=== PATIENT | male | born 1960 | race Caucasian/White ===

== ENCOUNTER 2019-09-03 16:53 | Emergency (ER) | payer BC ==
[2019-09-03 17:05] VITALS: BP 142/94; PULSE 96; TEMP 98.6; BMI 24.7
--- NOTE | 2019-09-03 17:05 | PDOC ---
Rapid Medical Evaluation Time Seen by Provider: 09/03/19 17:02 Medical Evaluation: Allergies Allergy/AdvReac Type Severity Reaction Status Date / Time No Known Allergies Allergy Verified 09/03/19 17:02 09/03/19 17:03 This patient had rapid medical evaluation in triage cc:" I feel like a fishbone is in my throat" HPI: Patient reports eating fish today and since then feels as if a fishbone is stuck in his throat. PE: NAD no stridors, clear lungs heart s1s2 Orders: xray of neck This patient will proceed to ed for further evaluation. Discharge Disposition - Diagnosis Fishbone in throat - Referrals - Patient Instructions - Post Discharge Activity
--- NOTE | 2019-09-03 17:13 | PDOC ---
History of Present Illness - General Chief Complaint: Foreign Body (FB) Stated Complaint: FISH BONE STUCK IN THROAT Time Seen by Provider: 09/03/19 17:02 History Source: Patient Exam Limitations: No Limitations Past History - Past Medical History Allergies/Adverse Reactions: Allergies Allergy/AdvReac Type Severity Reaction Status Date / Time No Known Allergies Allergy Verified 09/03/19 17:02 - Psycho Social/Smoking Cessation Hx Smoking History: Never smoked Hx Alcohol Use: No Drug/Substance Use Hx: No Review of Systems - Review of Systems Able to Perform ROS?: Yes Is the patient limited [place] proficient: No Constitutional: No: Chills, Fever HEENTM: Yes: Throat Pain. No: Throat Swelling, Difficulty Swallowing Respiratory: No: Shortness of Breath, Stridor, Wheezing, Productive cough Cardiac (ROS): No: Chest Pain *Physical Exam - Vital Signs Last Vital Signs Temp Pulse Resp BP Pulse Ox 98.6 F 96 H 17 142/94 100 09/03/19 17:02 09/03/19 17:02 09/03/19 17:02 09/03/19 17:02 09/03/19 17:02 - Physical Exam General Appearance: Yes: Nourished HEENT: positive: EOMI, ZORAN, Pharyngeal Erythema. negative: Tonsillar Erythema Neck: positive: Supple Respiratory/Chest: positive: Lungs Clear, Normal Breath Sounds. negative: Stridor, Wheezing Cardiovascular: positive: Regular Rhythm, Regular Rate, S1, S2 Neurologic: positive: nut tapper II-XII NML intact, Fully Oriented, Alert, Normal Mood/ Affect, Normal Response, Motor Strength 5/5 Medical Decision Making - Medical Decision Making 09/03/19 17:11 59 years old male with questionable fishbone stuck in throat since this afternoon. Patient reports he he was eating a fish male when the small bone got stuck in his throat. He attempted to get it out. Mother feels like a piece is the left. Patient denies shortness of breath or choking sensation. On exam patient is speaking full sentences. Lungs are clear there is no stridor on exam. Soft tissue neck ordered 09/03/19 19:33 xray no retained FB ENT follow up recommended if pain persist Discharge - Discharge Information Problems reviewed: Yes Clinical Impression/Diagnosis: Fishbone in throat, Pain in throat Condition: Stable Disposition: HOME - Admission No - Additional Discharge Information Prescription Drug Monitoring Program (I-STOP) results: I-STOP not reviewed - Follow up/Referral Referrals: Richie Wilburn MD [Staff Physician] - Shant Redman MD [Non Staff, Medical] - - Patient Discharge Instructions Additional Instructions: Your x-ray shows no retained fishbone in your neck. You may follow-up with ENT for further evaluation. Return to the emergency room if worsening symptoms occurs. - Post Discharge Activity
[2019-09-03] MEDS ORDERED: DEXAMETHASONE SOD PHOSPHATE 10 MG/1 ML VIAL ONE (17:22)
== END 2019-09-03 17:45 | disposition home or self-care (01) ==
LOC: JERFT 16:53
DX: R07.0 Pain in throat (principal); T17.228A Food in pharynx causing other injury, initial encounter; X58.XXXA Exposure to other specified factors, initial encounter; Y93.89 Activity, other specified; Y92.89 Other specified places as the place of occurrence of the external cause; Y99.8 Other external cause status
CPT/HCPCS: 70360-TC-FY; 99284-25